=== PATIENT | female | born 1995 | race American Indian/Alaskan Native ===

== ENCOUNTER 2017-12-08 20:51 | Emergency (ER) | payer OTHER, MEDICAID ==
[2017-12-08] MEDS ORDERED: Nitrofurantoin Monohydrate/Macrocrystalline 100 MG Cap PO ONE (21:39)
--- NOTE | 2017-12-08 21:39 | EDM.PDOC ---
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 denies dysuria Lower Abdomen Pain Score (Numeric/FACES): 5 - Related Data Allergies Allergy/AdvReac Type Severity Reaction Status Date / Time clavulanic acid Allergy Intermediate Rash Verified 12/08/17 21:08 [From Augmentin] amoxicillin [From Augmentin] Allergy Rash Verified 12/08/17 21:08 Penicillins Allergy Other Verified 12/08/17 21:09 Home Meds: Home Meds Folic Acid 1 mg PO DAILY 12/08/17 [History] Vit W-Ca,Fe,FA(<1 mg) [ Vitamins] 1 tab PO DAILY 12/08/17 [ History] Social & Family History - Family History Family Medical History: Noncontributory - Tobacco Use Smoking Status *Q: Never Smoker Second Hand Smoke Exposure: Yes - Recreational Drug Use Recreational Drug Use: No ED ROS GENERAL - Review of Systems Review Of Systems: ROS reveals no pertinent complaints other than HPI. ED EXAM, GI/ABD - Physical Exam Exam: See Below Exam Limited By: No Limitations General Appearance: Alert, WD/WN, No Apparent Distress Ears: Hearing Grossly Normal Throat/Mouth: Normal Voice, No Airway Compromise Head: Atraumatic Neck: Non-Tender, Full Range of Motion Respiratory/Chest: No Respiratory Distress Cardiovascular: Regular Rate, Rhythm GI/Abdominal Exam: Soft, Non-Tender Neurological: Alert, Oriented, Normal Cognition, Normal Gait, No Motor/Sensory Deficits Psychiatric: Normal Affect, Normal Mood Skin Exam: Warm, Dry, Normal Color Course - Vital Signs Last Recorded V/S: Last Vital Signs Temp 37.2 C 12/08/17 21:11 Pulse 119 H 12/08/17 21:11 Resp 16 12/08/17 21:11 BP 130/75 12/08/17 21:11 Pulse Ox 98 12/08/17 21:11 - Orders/Labs/Meds Orders: Active Orders 24 hr Category Date Time Status HCG QUALITATIVE,URINE [URCHEM] Stat Lab 12/08/17 21:02 Stop Req URINALYSIS W/MICROSCOPIC [UA W/MICROSCOPIC] [URIN] Stat Lab 12/08/17 21:02 Ordered Labs: Laboratory Tests 12/08/17 Range/Units 21:02 Urine Color Yellow (YELLOW) Urine Appearance Slightly cloudy (CLEAR) Urine pH 6.0 (5.0-9.0) Ur Specific [place] 1.020 (1.005-1.030) Urine Protein Trace H (NEGATIVE) Urine Glucose (UA) Negative (NEGATIVE) Urine Ketones >=160 H (NEGATIVE) Urine Occult Blood Negative (NEGATIVE) Urine Nitrite Negative (NEGATIVE) Urine Bilirubin Negative (NEGATIVE) Urine Urobilinogen 0.2 (0.2-1.0) mg/dL Ur Leukocyte Esterase Trace H (NEGATIVE) Urine RBC 0-5 /HPF Urine WBC 10-20 H (0-5/HPF) /HPF Ur Epithelial Cells Many H /HPF Urine Bacteria Moderate H (0-FEW/HPF) /HPF Urine Mucus Moderate H /LPF Urine Other See note - Re-Assessments/Exams Free Text/Narrative Re-Assessment/Exam: 12/08/17 21:38 results discussed with pt. Departure - Departure Time of Disposition: 21:38 Disposition: Home, Self-Care 01 Condition: Good Clinical Impression: UTI (urinary tract infection) Qualifiers: Urinary tract infection type: acute cystitis Hematuria presence: without hematuria Qualified Code(s): N30.00 - Acute cystitis without hematuria - Discharge Information Instructions: Urinary Tract Infection, Adult, [id number] Referrals: Sarah Cunningham BUDGET COUNSELOR [Primary Care Provider] - Additional Instructions: 1) drink lots of liquids 2) follow up with clinic 3) recheck if develops fever and back pain rx given; macrobid 100mg bid x 20 - My Orders Last 24 Hours: My Active Orders 12/08/17 21:02 HCG QUALITATIVE,URINE [URCHEM] Stat URINALYSIS W/MICROSCOPIC [UA W/MICROSCOPIC] [URIN] Stat - Assessment/Plan Last 24 Hours: My Active Orders 12/08/17 21:02 HCG QUALITATIVE,URINE [URCHEM] Stat URINALYSIS W/MICROSCOPIC [UA W/MICROSCOPIC] [URIN] Stat
== END 2017-12-08 21:47 | disposition home or self-care (01) ==
LOC: DL.ED 20:51
DX: O23.41 Unspecified infection of urinary tract in pregnancy, first trimester (principal); N30.00 Acute cystitis without hematuria; Z88.0 Allergy status to penicillin; Z88.1 Allergy status to other antibiotic agents; Z3A.13 13 weeks gestation of pregnancy
CPT/HCPCS: 81001; 99283; 99284; A9270

== ENCOUNTER 2019-04-17 16:08 | Inpatient (IN) | payer MEDICAID ==
[2019-04-17] MEDS ORDERED: Misoprostol 400 MCG (4 X 100 MCG TAB) RECTAL PRN (23:15)
[2019-04-17] MEDS ORDERED: Tranexamic Acid 1,000 MG in Sodium Chloride 0.9% 100 ML IV PRN (23:15)
[2019-04-17] MEDS ORDERED: Lactated Ringers 500 ML IV ONE (23:15)
[2019-04-17] MEDS ORDERED: Lidocaine 1% 30 ML SDV INJECT PRN (23:15)
[2019-04-17] MEDS ORDERED: Sodium Chloride 0.9% 10 ML Syringe FLUSH PRN (23:15)
[2019-04-17] MEDS ORDERED: Carboprost Tromethamine 250 MCG/1 ML Amp IM PRN (23:15)
[2019-04-17] MEDS ORDERED: Ondansetron 4 MG/2 ML SDV IV PRN (23:15)
[2019-04-17] MEDS ORDERED: fentaNYL 100 MCG/2 ML SDV IVPUSH PRN (23:15)
[2019-04-17] MEDS ORDERED: Methylergonovine 0.2 MG/1 ML Amp IM PRN (23:15)
--- NOTE | 2019-04-18 00:35 | PCM.LDHP ---
L&D History of Present Illness - General Date of Service: 04/18/19 Admit Problem/Dx: Patient Status Order with Admit Dx/Problem 04/17/19 23:15 Patient Status [ADT] Routine Admission Diagnosis/Problem Admission Diagnosis/Problem care Source of Information: Patient History Limitations: Reports: No Limitations - History of Present Illness Introduction:: 23-year-old at 39w1d presents with increased pelvic pressure for the past 8 hours and increased contractions, now every 8-10 minutes. Baby has been active. No vaginal bleeding or leaking of fluid. has been complicated by close-interval and anemia. Patient also had an abnormal quad screen with normal subsequent testing. - Related Data Allergies/Adverse Reactions: Allergies Allergy/AdvReac Type Severity Reaction Status Date / Time clavulanic acid Allergy Intermediate Cannot Verified 04/17/19 18:22 [From Augmentin] Remember amoxicillin [From Augmentin] Allergy Cannot Verified 04/17/19 18:22 Remember Penicillins Allergy Cannot Verified 04/17/19 18:22 Remember Home Medications: Home Meds Vit Calc,Iron,Folic [ Vitamins] 1 tab PO DAILY 12/08/17 [ History] Ferrous Sulfate 325 mg PO DAILY 05/30/18 [History] Past Medical History HEENT History: Reports: None Cardiovascular History: Reports: None Respiratory History: Reports: None Gastrointestinal History: Reports: GERD Genitourinary History: Reports: None 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 OB/BYN History: last delivery 06/11/18 Musculoskeletal History: Reports: None Neurological History: Reports: None Psychiatric History: Reports: None Endocrine/Metabolic History: Reports: None Hematologic History: Reports: Anemia Immunologic History: Reports: None Oncologic (Cancer) History: Reports: None Dermatologic History: Reports: None - Infectious Disease History Infectious Disease History: Reports: None - Past Surgical History Head Surgeries/Procedures: Reports: None Social & Family History - Family History Family Medical History: Noncontributory - Caffeine Use Caffeine Use: Reports: None - Living Situation & Occupation Living situation: Reports: with Significant Other (Engaged) H&P Review of Systems - Review of Systems: Review Of Systems: See Below General: Reports: No Symptoms HEENT: Reports: No Symptoms Pulmonary: Reports: No Symptoms Cardiovascular: Reports: No Symptoms Gastrointestinal: Reports: No Symptoms Genitourinary: Reports: No Symptoms Musculoskeletal: Reports: No Symptoms Skin: Reports: No Symptoms Psychiatric: Reports: No Symptoms Neurological: Reports: No Symptoms L&D Exam - Exam Exam: See Below - Vital Signs Vital Signs: Last Vital Signs Temp 36.8 C 04/17/19 16:20 Pulse 81 04/17/19 17:07 Resp BP 138/83 04/17/19 17:07 Pulse Ox - OB Specific Contraction Frequency (min): none Movement: Active Heart Tones: Present Heart Tones per Min: 135 Heart Rate (FHR) Variability: Moderate (6-25 bmp) Presentation: Vertex - Rajan Score Rajan Score Cervix Position: Posterior Rajan Score Consistency: Soft Rajan Score Effacement: 51-70% Rajan Score Dilation: 3-4 cm Rajan Score Infant's Station: -2 Rajan Score Total: 7 - Exam General: Alert, Oriented Lungs: Clear to Auscultation, Normal Respiratory Effort Cardiovascular: Regular Rate, Regular Rhythm. No: Systolic Murmur, Diastolic Murmur Genitourinary: Normal external exam Back Exam: Normal Inspection Extremities: Pedal Edema (Trace bilaterally) Skin: Warm, Dry, Intact - Patient Data Lab Results Last 24 hrs: Laboratory Results - last 24 hr 04/17/19 Range/Units 23:40 WBC 10.1 H (5.0-10.0) 10^3/uL RBC 4.41 (4.2-5.4) 10^6/uL Hgb 10.9 L D (12.0-16.0) g/dL Hct 33.6 L (37.0-47.0) % MCV 76.2 L (80-100) fL MCH 24.7 L (27.0-34.0) pg MCHC 32.4 L (33.0-35.0) g/dL Plt Count 207 (150-450) 10^3/uL Result Diagrams: 04/17/19 23:40 - Problem List (1) care in third trimester SNOMED Code(s): 016952590, 46960166, 64685072, 975977320, 188061244 ICD Code: Z34.93 - ENCNTR FOR SUPRVSN OF NORMAL PREG, UNSP, THIRD TRIMESTER Status: Acute Current Visit: No (2) Abnormal quad screen SNOMED Code(s): 154495176, 152743456 ICD Code: O28.0 - ABNORMAL HEMATOLOG FINDING ON SCREENING OF MOTHER Status: Acute Current Visit: Yes (3) Heartburn during SNOMED Code(s): 37945562 ICD Code: O26.899 - OTH RELATED CONDITIONS, UNSPECIFIED TRIMESTER; R12 - HEARTBURN Status: Acute Current Visit: Yes (4) Anemia affecting in third trimester SNOMED Code(s): 81394528, 22741518 ICD Code: O99.013 - ANEMIA COMPLICATING , THIRD TRIMESTER Status: Acute Current Visit: No Problem List Initiated/Reviewed/Updated: Yes Orders Last 24hrs: Active Orders 24 hr Category Date Time Status Patient Status [ADT] Routine ADT 04/17/19 23:15 Active Communication Order [RC] ASDIRECTED Care 04/17/19 23:15 Active Communication Order [RC] ASDIRECTED Care 04/17/19 23:20 Active Communication Order [RC] ASDIRECTED Care 04/17/19 23:20 Active Communication Order [RC] ASDIRECTED Care 04/17/19 23:20 Active Communication Order [RC] ASDIRECTED Care 04/17/19 23:20 Active Communication Order [RC] ASDIRECTED Care 04/17/19 23:20 Active Heart Tones [RC] PER UNIT ROUTINE Care 04/17/19 23:15 Active Monitoring [RC] PER UNIT ROUTINE Care 04/17/19 23:20 Active Notify Provider Vital Signs OB [RC] ASDIRECTED Care 04/17/19 23:15 Active Notify Provider [RC] PRN Care 04/17/19 23:15 Active Notify Provider [RC] PRN Care 04/17/19 23:20 Active Notify Provider [RC] PRN Care 04/17/19 23:20 Active Notify Provider [RC] STAT Care 04/17/19 23:20 Active OB Check [OM.PC] Click To Edit Care 04/17/19 18:21 Ordered POC Labs [RC] ASDIRECTED Care 04/17/19 23:15 Active Pump Management, Intrathecal [RC] ASDIRECTED Care 04/17/19 23:15 Active Up ad Irene [RC] ASDIRECTED Care 04/17/19 23:15 Active Up ad Irene [RC] PER UNIT ROUTINE Care 04/17/19 23:20 Active Vaginal Exam [RC] PRN Care 04/17/19 23:20 Active Vital Signs [RC] PER UNIT ROUTINE Care 04/17/19 23:15 Active Regular Diet [DIET] Diet 04/17/19 Dinner Active Acetaminophen [Tylenol] Med 04/17/19 23:15 Active 650 mg PO Q4H PRN Carboprost Tromethamine [Hemabate DS] Med 04/17/19 23:15 Active 250 mcg IM ASDIRECTED PRN Lactated Ringers [Ringers, Lactated] 1,000 ml Med 04/17/19 23:15 Active IV ASDIRECTED Lidocaine 1% [Xylocaine-MPF 1%] Med 04/17/19 23:15 Active 30 ml INJECT ASDIRECTED PRN Methylergonovine [Methergine] Med 04/17/19 23:15 Active 0.2 mg IM ASDIRECTED PRN Ondansetron [Zofran] Med 04/17/19 23:15 Active 4 mg IV Q4H PRN Oxytocin/Normal Saline [Pitocin in NS 30 UNIT/500 ML] Med 04/17/19 23:30 Active 30 unit in 500 ml IV TITRATE Sodium Chloride 0.9% [Saline Flush] Med 04/17/19 23:15 Active 10 ml FLUSH ASDIRECTED PRN Tranexamic Acid [Cyklokapron] 1,000 mg Med 04/17/19 23:15 Active Sodium Chloride 0.9% [Normal Saline] 100 ml IV ONETIME fentaNYL [Sublimaze] Med 04/17/19 23:15 Active 50 mcg IVPUSH Q1H PRN miSOPROStol [Cytotec] Med 04/17/19 23:15 Active 800 mcg RECTAL ASDIRECTED PRN EFM External [ Heart Monitor External] [WOMSER] Oth 04/17/19 18:21 Ordered Routine Saline Lock Insert [OM.PC] Routine Oth 04/17/19 23:15 Ordered Resuscitation Status Routine Resus Stat 04/17/19 23:15 Ordered Medication Orders Acetaminophen (Tylenol) 650 mg PO Q4H PRN PRN Reason: Pain (Mild 1-3) and fever Carboprost Tromethamine (Hemabate Ds) 250 mcg IM ASDIRECTED PRN PRN Reason: HEMORRHAGE Fentanyl (Sublimaze) 50 mcg IVPUSH Q1H PRN PRN Reason: Pain (moderate 4-6) Lactated Ringer's (Ringers, Lactated) 1,000 mls @ 125 mls/hr IV ASDIRECTED [place] Tranexamic Acid 1,000 mg/ (Sodium Chloride) 110 mls @ 660 mls/hr IV ONETIME PRN PRN Reason: Bleeding Oxytocin/Sodium Chloride (Pitocin In Ns 30 Unit/500 Ml) 30 unit in 500 mls @ 2 mls/hr IV TITRATE [place]; Protocol Lidocaine HCl (Xylocaine-Mpf 1%) 30 ml INJECT ASDIRECTED PRN PRN Reason: Perineal Repair Methylergonovine Maleate (Methergine) 0.2 mg IM ASDIRECTED PRN PRN Reason: Hemorrhage Misoprostol (Cytotec) 800 mcg RECTAL ASDIRECTED PRN PRN Reason: Hemorrhage Ondansetron HCl (Zofran) 4 mg IV Q4H PRN PRN Reason: Nausea/Vomiting Sodium Chloride (Saline Flush) 10 ml FLUSH ASDIRECTED PRN PRN Reason: Keep Vein Open Assessment/Plan Comment:: 23-year-old at 39w1d with increased pelvic pain Patient was observed for 2 hours and cervix reassessed. Minimal change was noted; however, due to patient's gestational age, BMI, cervical dilation and close-interval pregnancies, she was offered IOL at she is 39w1d. Patient would like to proceed. 1. Admit to L&D and initiate routine intrapartum orders when able 2. Pitocin per protocol for induction/augmentation 3. AROM when able 4. Expectant management. Anticipate Ariana Sanon MD
[2019-04-18] MEDS ORDERED: hydrOXYzine HCl 25 MG Tab PO ONE (00:44)
[2019-04-18] MEDS ORDERED: Nalbuphine 10 MG/1 ML Vial IM PRN (00:44)
[2019-04-18] MEDS ORDERED: Nalbuphine 10 MG/1 ML Vial IV PRN (00:44)
[2019-04-18] MEDS: Lactated Ringers 1,000 ML IV SCH ×2 (01:10→08:10)
[2019-04-18] MEDS: Oxytocin/Normal Saline 30 UNIT/500 ML BAG IV SCH ×2 (01:12→11:48)
[2019-04-18] MEDS ORDERED: EPINEPHrine 1 MG/1 ML Amp ONE (08:02)
[2019-04-18] MEDS ORDERED: fentaNYL 100 MCG/2 ML SDV ONE (08:02)
--- NOTE | 2019-04-18 09:02 | PCM.PRNOTE ---
- Free Text/Narrative Note: Requested to provide analgesia to full term patient in severe pain. Upon entering the room, patient is sitting on edge of bed complaining of severe abdominal/pelvic pain and discomfort. Procedure was discussed with patient including adverse outcomes and expectations. Pt consented to analgesia, SAB/ IT. Pt placed into a proper sitting position. Landmarks for SAB/IT were identified and marked. Hands were washed and appropriate PPE was applied. Back was prepped with betadine x3. A sterile, transparent, fenestrated drape was applied. Excess betadine was removed. Using 3 mL of a 1% lidocaine solution , a skin wheel was placed at the L2/L3 interspace. A 24 ga (4 inch) Penc[place] spinal needle was inserted until positive for CSF. Negative for heme or paresthesias. Injected fentanyl 30 mcg, sufentanil 25 mcg, and 7.5 mg of a 0.75 % bupivacaine solution with an epi wash. Pt was placed left lateral position for approximately 20 minutes. There were zero complications or adverse outcomes. Will continue to monitor. Procedure Date & Time: 04-18-19 [id number]
[2019-04-18] MEDS ORDERED: Benzocaine/Menthol 20%-0.5% Spray 56 GM Canister TOP PRN (12:26)
[2019-04-18] MEDS ORDERED: Simethicone 80 MG Tab.Chew PO PRN (12:26)
[2019-04-18] MEDS ORDERED: Oxytocin 10 Units/1 ML SDV IM PRN (12:26)
--- NOTE | 2019-04-18 12:28 | PCM.DEL ---
L & D Note - Delivery Note Cervical Ripening Method: Oxytocin Presentation: Vertex Episiotomy Type: None Provider: Ariana Sanon - Patient Data Vitals - Most Recent: Last Vital Signs Temp 35.9 C 04/18/19 09:51 Pulse 74 04/18/19 12:01 Resp 16 04/18/19 11:31 BP 113/62 04/18/19 12:01 Pulse Ox 95 04/18/19 09:06 Weight - Most Recent: 121.563 kg I&O - Last 24 Hours: Intake & Output 04/17/19 04/18/19 04/18/19 22:59 06:59 14:59 Intake Total 1500 Balance 1500 Lab Results Last 24 Hours: Laboratory Results - last 24 hr 04/17/19 Range/Units 23:40 WBC 10.1 H (5.0-10.0) 10^3/uL RBC 4.41 (4.2-5.4) 10^6/uL Hgb 10.9 L D (12.0-16.0) g/dL Hct 33.6 L (37.0-47.0) % MCV 76.2 L (80-100) fL MCH 24.7 L (27.0-34.0) pg MCHC 32.4 L (33.0-35.0) g/dL Plt Count 207 (150-450) 10^3/uL Med Orders - Current: Current Medications Acetaminophen (Tylenol) 650 mg PO Q4H PRN PRN Reason: Pain (Mild 1-3) and fever Carboprost Tromethamine (Hemabate Ds) 250 mcg IM ASDIRECTED PRN PRN Reason: HEMORRHAGE Tranexamic Acid 1,000 mg/ (Sodium Chloride) 110 mls @ 660 mls/hr IV ONETIME PRN PRN Reason: Bleeding Oxytocin/Sodium Chloride (Pitocin In Ns 30 Unit/500 Ml) 30 unit in 500 mls @ 2 mls/hr IV TITRATE [place]; Protocol Last Admin: 04/18/19 11:48 Dose: 250 munits/min, 250 mls/hr Methylergonovine Maleate (Methergine) 0.2 mg IM ASDIRECTED PRN PRN Reason: Hemorrhage Last Admin: 04/18/19 10:49 Dose: 0.2 mg Misoprostol (Cytotec) 800 mcg RECTAL ASDIRECTED PRN PRN Reason: Hemorrhage Nalbuphine HCl (Nubain) 20 mg IM Q3H PRN PRN Reason: Pain Nalbuphine HCl (Nubain) 10 mg IV Q3H PRN PRN Reason: Pain Sodium Chloride (Saline Flush) 10 ml FLUSH ASDIRECTED PRN PRN Reason: Keep Vein Open Discontinued Medications Epinephrine HCl (Adrenalin) Confirm Administered Dose 1 mg .ROUTE .STK-MED ONE Stop: 04/18/19 08:03 Fentanyl (Sublimaze) 50 mcg IVPUSH Q1H PRN PRN Reason: Pain (moderate 4-6) Last Admin: 04/18/19 06:50 Dose: 50 mcg Fentanyl (Sublimaze) Confirm Administered Dose 100 mcg .ROUTE .STK-MED ONE Stop: 04/18/19 08:03 Hydroxyzine HCl (Atarax) 50 mg PO ONETIME ONE Stop: 04/18/19 00:45 Last Admin: 04/18/19 01:08 Dose: 50 mg Lactated Ringer's (Ringers, Lactated) 500 mls @ 999 mls/hr IV .BOLUS ONE Stop: 04/17/19 23:45 Lactated Ringer's (Ringers, Lactated) 1,000 mls @ 125 mls/hr IV ASDIRECTED [place] Last Admin: 04/18/19 08:10 Dose: 125 mls/hr Lidocaine HCl (Xylocaine-Mpf 1%) 30 ml INJECT ASDIRECTED PRN PRN Reason: Perineal Repair Ondansetron HCl (Zofran) 4 mg IV Q4H PRN PRN Reason: Nausea/Vomiting Last Admin: 04/18/19 07:53 Dose: 4 mg Sufentanil Citrate (Sufenta) Confirm Administered Dose 50 mcg .ROUTE .STK-MED ONE Stop: 04/18/19 08:03 - Problem List & Annotations (1) care in third trimester SNOMED Code(s): 054584850, 01553457, 80503574, 055219107, 063586348 Code(s): Z34.93 - ENCNTR FOR SUPRVSN OF NORMAL PREG, UNSP, THIRD TRIMESTER Status: Acute Current Visit: No (2) Abnormal quad screen SNOMED Code(s): 946071857, 639362413 Code(s): O28.0 - ABNORMAL HEMATOLOG FINDING ON SCREENING OF MOTHER Status: Acute Current Visit: Yes (3) Heartburn during SNOMED Code(s): 37351704 Code(s): O26.899 - OTH RELATED CONDITIONS, UNSPECIFIED TRIMESTER; R12 - HEARTBURN Status: Acute Current Visit: Yes (4) Anemia affecting in third trimester SNOMED Code(s): 62928537, 32760945 Code(s): O99.013 - ANEMIA COMPLICATING , THIRD TRIMESTER Status: Acute Current Visit: No - My Orders Last 24 Hours: My Active Orders 04/17/19 18:21 OB Check [OM.PC] Click To Edit EFM External [ Heart Monitor External] [WOMSER] Routine 04/17/19 23:15 Patient Status [ADT] Routine Notify Provider Vital Signs OB [RC] ASDIRECTED POC Labs [RC] ASDIRECTED Up ad Irene [RC] ASDIRECTED Acetaminophen [Tylenol] 650 mg PO Q4H PRN Carboprost Tromethamine [Hemabate DS] 250 mcg IM ASDIRECTED PRN Methylergonovine [Methergine] 0.2 mg IM ASDIRECTED PRN Sodium Chloride 0.9% [Saline Flush] 10 ml FLUSH ASDIRECTED PRN Tranexamic Acid [Cyklokapron] 1,000 mg Sodium Chloride 0.9% [Normal Saline] 100 ml IV ONETIME miSOPROStol [Cytotec] 800 mcg RECTAL ASDIRECTED PRN Saline Lock Insert [OM.PC] Routine Resuscitation Status Routine 04/17/19 23:30 Oxytocin/Normal Saline [Pitocin in NS 30 UNIT/500 ML] 30 unit in 500 ml IV TITRATE 04/17/19 Dinner Regular Diet [DIET] 04/18/19 00:44 Nalbuphine [Nubain] 10 mg IV Q3H PRN Nalbuphine [Nubain] 20 mg IM Q3H PRN 04/18/19 12:26 Vital Signs [RC] PFP Consult to Pharmacy Benefits Coordinator [CONS] Routine CBC W/O DIFF,HEMOGRAM [HEME] Routine Benzocaine/Menthol [Dermoplast Pain Relief [place]] See Dose Instructions TOP Q4H PRN Docusate Sodium [Colace] 100 mg PO BID PRN Ibuprofen [Motrin] 800 mg PO Q8H PRN Oxytocin [Pitocin] 10 unit IM ONETIME PRN Simethicone 80 mg PO Q4H PRN Zolpidem [Ambien] 5 mg PO BEDTIME PRN Assess Lochia [WOMSER] Per Unit Routine Assess Uterine Involution [WOMSER] Per Unit Routine Breast Pump [WOMSER] Per Unit Routine Ice Therapy [OM.PC] Per Unit Routine Perineal Care [OM.PC] Per Unit Routine Sitz Bath [OM.PC] Per Unit Routine 04/19/19 09:00 Vit with Ca/FA/Iron [ Plus Iron] 1 each PO DAILY - Plan Plan:: 23-year-old at 39w1d with increased pelvic pain Patient was observed for 2 hours and cervix reassessed. Minimal change was noted; however, due to patient's gestational age, BMI, cervical dilation and close-interval pregnancies, she was offered IOL at she is 39w1d. Patient would like to proceed. 1. Admit to L&D and initiate routine intrapartum orders when able 2. Pitocin per protocol for induction/augmentation 3. AROM when able 4. Expectant management. Anticipate Ariana Sanon MD
[2019-04-18] MEDS: Ibuprofen 800 MG Tab PO PRN (15:07)
[2019-04-18] MEDS ORDERED: Zolpidem 5 MG Tab PO PRN (21:00)
[2019-04-18] MEDS: Acetaminophen 325 MG Tab PO PRN (22:12)
[2019-04-18] MEDS: Docusate Sodium 100 MG Cap PO PRN (22:12)
[2019-04-19] MEDS: Ibuprofen 800 MG Tab PO PRN ×2 (07:46→19:29)
[2019-04-19] MEDS: Prenatal Multivitamin with Calcium/Folic Acid/Iron Tab PO SCH ×2 (07:47→10:10)
[2019-04-19] MEDS: Acetaminophen 325 MG Tab PO PRN ×2 (07:47→19:29)
--- NOTE | 2019-04-19 08:19 | PCM.PNPP ---
- General Info Date of Service: 04/19/19 Admission Dx/Problem (Free Text): Post Day Number 1 Patient: Flor Meraz Admit Date: 04/18/19 Today's Date: 04/19/19 Subjective: Patient is ambulating, voiding, tolerating regular diet all without difficulty. She reports her lochia is moderate . She is not . She is up and ambulating well, tolerating PO intake and using the bathroom, good bowel sounds and passing gas, no bowel movement at this time. She complains of generalized soreness in her bottom, abdomen and back. Objective: Vitals reviewed General: alert and oriented, no distress Lungs: CTAB, no respiratory distress Heart: RRR Abdomen: mildly tender Uterus is firm, at the level of the umbilicus. Lower extremities are nontender and have trace edema. Skin: is warm and dry, well perfused no visible lesions RPR: nonreactive Rubella: immune GBS: negative Hbs: negative Assessment/Plan: Patient is stable and comfortable, no acute distress. She is day number one status post Her Hb today was 8.9 with previous of 10.9 and she is completely asymptomatic. She did get one dose of Methergine for post bleeding, but bleeding has been normal since then. Plan will be to encourage ambulation. Saline lock IV with good oral intake. Continue with advancing routine post cares. Plan for discharge tomorrow Arina Oconnell MD PGY-3 - Patient Data Vital Signs - Most Recent: Last Vital Signs Temp 98.5 F 04/18/19 20:00 Pulse 84 04/18/19 20:00 Resp 16 04/18/19 20:00 BP 127/78 04/18/19 20:00 Pulse Ox 99 04/18/19 20:00 Weight - Most Recent: 268 lb I&O - Last 24 Hours: Intake & Output 04/18/19 04/19/19 04/19/19 22:59 06:59 14:59 Intake Total 520 Output Total 700 Balance -180 Lab Results - Last 24 Hours: Laboratory Results - last 24 hr 04/19/19 Range/Units 06:10 WBC 11.5 H (5.0-10.0) 10^3/uL RBC 3.60 L (4.2-5.4) 10^6/uL Hgb 8.9 L D (12.0-16.0) g/dL Hct 28.1 L (37.0-47.0) % MCV 78.1 L (80-100) fL MCH 24.7 L (27.0-34.0) pg MCHC 31.7 L (33.0-35.0) g/dL Plt Count 167 (150-450) 10^3/uL Med Orders - Current: Current Medications Acetaminophen (Tylenol) 650 mg PO Q4H PRN PRN Reason: Pain (Mild 1-3) and fever Last Admin: 04/19/19 07:47 Dose: 650 mg Benzocaine/Menthol (Dermoplast Pain Relief [place]) 0 gm TOP Q4H PRN PRN Reason: Perineal comfort measures Last Admin: 04/18/19 15:08 Dose: 1 spray Carboprost Tromethamine (Hemabate Ds) 250 mcg IM ASDIRECTED PRN PRN Reason: HEMORRHAGE Docusate Sodium (Colace) 100 mg PO BID PRN PRN Reason: Constipation Last Admin: 04/18/19 22:12 Dose: 100 mg Tranexamic Acid 1,000 mg/ (Sodium Chloride) 110 mls @ 660 mls/hr IV ONETIME PRN PRN Reason: Bleeding Oxytocin/Sodium Chloride (Pitocin In Ns 30 Unit/500 Ml) 30 unit in 500 mls @ 2 mls/hr IV TITRATE [place]; Protocol Last Titration: 04/18/19 14:48 Dose: 0 munits/min, 0 mls/hr Ibuprofen (Motrin) 800 mg PO Q8H PRN PRN Reason: Mild Pain or Fever, use 2nd Last Admin: 04/19/19 07:46 Dose: 800 mg Methylergonovine Maleate (Methergine) 0.2 mg IM ASDIRECTED PRN PRN Reason: Hemorrhage Last Admin: 04/18/19 10:49 Dose: 0.2 mg Misoprostol (Cytotec) 800 mcg RECTAL ASDIRECTED PRN PRN Reason: Hemorrhage Nalbuphine HCl (Nubain) 20 mg IM Q3H PRN PRN Reason: Pain Nalbuphine HCl (Nubain) 10 mg IV Q3H PRN PRN Reason: Pain Oxytocin (Pitocin) 10 unit IM ONETIME PRN PRN Reason: Bleeding Prenat Multivit/[place]/Iron/Folic Ac ( Plus Iron) 1 each PO DAILY [facility] Last Admin: 04/19/19 07:47 Dose: 1 each Simethicone (Simethicone) 80 mg PO Q4H PRN PRN Reason: Gas Sodium Chloride (Saline Flush) 10 ml FLUSH ASDIRECTED PRN PRN Reason: Keep Vein Open Zolpidem Tartrate (Ambien) 5 mg PO BEDTIME PRN PRN Reason: Insomnia Discontinued Medications Epinephrine HCl (Adrenalin) Confirm Administered Dose 1 mg .ROUTE .STK-MED ONE Stop: 04/18/19 08:03 Last Admin: 04/18/19 14:23 Dose: Not Given Fentanyl (Sublimaze) 50 mcg IVPUSH Q1H PRN PRN Reason: Pain (moderate 4-6) Last Admin: 04/18/19 06:50 Dose: 50 mcg Fentanyl (Sublimaze) Confirm Administered Dose 100 mcg .ROUTE .STK-MED ONE Stop: 04/18/19 08:03 Last Admin: 04/18/19 14:23 Dose: Not Given Hydroxyzine HCl (Atarax) 50 mg PO ONETIME ONE Stop: 04/18/19 00:45 Last Admin: 04/18/19 01:08 Dose: 50 mg Lactated Ringer's (Ringers, Lactated) 500 mls @ 999 mls/hr IV .BOLUS ONE Stop: 04/17/19 23:45 Last Admin: 04/18/19 17:46 Dose: Not Given Lactated Ringer's (Ringers, Lactated) 1,000 mls @ 125 mls/hr IV ASDIRECTED [facility] Last Admin: 04/18/19 08:10 Dose: 125 mls/hr Lidocaine HCl (Xylocaine-Mpf 1%) 30 ml INJECT ASDIRECTED PRN PRN Reason: Perineal Repair Ondansetron HCl (Zofran) 4 mg IV Q4H PRN PRN Reason: Nausea/Vomiting Last Admin: 04/18/19 07:53 Dose: 4 mg Sufentanil Citrate (Sufenta) Confirm Administered Dose 50 mcg .ROUTE .STK-MED ONE Stop: 04/18/19 08:03 Last Admin: 04/18/19 14:23 Dose: Not Given - Interaction Support Person: Significant Other - Recovery Exam Fundal Tone: Firm Fundal Level: At Umbilicus Fundal Placement: Midline Lochia Amount: Small Lochia Color: Rubra/Red Perineum Description: Intact, Minimal Bruising/Swelling Episiotomy/Laceration: Approximated Bladder Status: Voiding Urinary Elimination: Not Voiding - Problem List & Annotations (1) (normal spontaneous vaginal delivery) SNOMED Code(s): 62974823, 465290433 Code(s): O80 - ENCOUNTER FOR FULL-TERM UNCOMPLICATED DELIVERY Status: Acute Current Visit: No - Problem List Review Problem List Initiated/Reviewed/Updated: Yes
[2019-04-19] MEDS: Albuterol 6.7 GM Inhaler INH PRN (19:28)
[2019-04-19] MEDS: Docusate Sodium 100 MG Cap PO PRN (19:29)
[2019-04-20] MEDS: Ibuprofen 800 MG Tab PO PRN (09:05)
[2019-04-20] MEDS: Prenatal Multivitamin with Calcium/Folic Acid/Iron Tab PO SCH (09:05)
[2019-04-20] MEDS: Albuterol 6.7 GM Inhaler INH PRN (09:08)
--- NOTE | 2019-04-20 12:12 | PCM.DCSUM1 ---
Discharge Summary - Hospital Course HPI Initial Comments: Summary of Hospital Course: Flor Meraz is a 23 year old at 39w1d who presented to labor and delivery on 04/18 with uterine contractions, she was admitted for induction of labor. She underwent a delivery and delivered a viable female weighing 3765 grams with Apgars of 7 and 9 at 1 and 5 minutes respectively. hemoglobin was 8.9 gm/dL. Patient had unremarkable course. By day 2 pt was doing well, ambulating, voiding, and tolerating general diet without difficulty. Pain was well controlled with OTC pain medications. Hence she was discharged to home. Blood type: O+ Rubella immune. control to be discussed . Diagnosis: Stroke: No - Discharge Data Discharge Date: 04/20/19 Discharge Disposition: Home, Self-Care 01 Condition: Good - Referral to Home Health Primary Care Physician: Vicki Cruz PA-C - Discharge Diagnosis/Problem(s) (1) (normal spontaneous vaginal delivery) SNOMED Code(s): 38282437, [id number] ICD Code: O80 - ENCOUNTER FOR FULL-TERM UNCOMPLICATED DELIVERY Status: Acute Current Visit: No - Patient Summary/Data Consults: Consultations 04/18/19 12:26 Consult to Filler Wiper [CONS] Routine - Patient Instructions Diet: Usual Diet as Tolerated Activity: No Lifting Over 20 Pounds Driving: May Drive Today Showering/Bathing: May Shower Notify Provider of: Fever, Increased Pain, Swelling and Redness, Drainage, Nausea and/or Vomiting - Discharge Plan *PRESCRIPTION DRUG MONITORING PROGRAM REVIEWED*: Not Applicable *COPY OF PRESCRIPTION DRUG MONITORING REPORT IN PATIENT SAMUEL: Not Applicable Home Medications: Home Meds Vit Calc,Iron,Folic [ Vitamins] 1 tab PO DAILY 12/08/17 [ History] Ferrous Sulfate 325 mg PO DAILY 05/30/18 [History] Acetaminophen [Tylenol] 650 mg PO Q4H PRN tablet 04/20/19 [Rx] Albuterol [Proventil HFA] 0 gm INH Q4H PRN #0 inhaler 04/20/19 [Rx] Docusate Sodium [Colace] 100 mg PO BID PRN cap 04/20/19 [Rx] Ibuprofen [Motrin] 800 mg PO Q8H PRN tablet 04/20/19 [Rx] - Discharge Summary/Plan Comment DC Time >30 min.: Yes Discharge Summary/Plan Comment: Discharge (or Final) Diagnoses: 1. Status post Intrauterine at 39w1d 2. s/p Induction of labor 3. on 04/18/19 Discharge Details: Admission Condition: good Discharged Condition: good Disposition: Home Diet: regular diet Activity: no heavy lifting for 2 weeks, pelvic rest for 6 weeks. She was instructed to seek medical attention for fever>100.3, or heavy vaginal bleeding. Follow-up with Dr. Sanon in 6 weeks for visit. - General Info Date of Service: 04/20/19 Admission Dx/Problem (Free Text: Induction of labor IUP at 39w1d - Patient Data Vitals - Most Recent: Last Vital Signs Temp 97.8 F 04/20/19 08:00 Pulse 91 04/20/19 08:00 Resp 18 04/20/19 08:00 BP 127/76 04/20/19 08:00 Pulse Ox 100 04/20/19 08:00 Weight - Most Recent: 268 lb I&O - Last 24 hours: Intake & Output 04/19/19 04/20/19 04/20/19 22:59 06:59 14:59 Intake Total 360 Balance 360 Med Orders - Current: Current Medications Acetaminophen (Tylenol) 650 mg PO Q4H PRN PRN Reason: Pain (Mild 1-3) and fever Last Admin: 04/19/19 19:29 Dose: 650 mg Albuterol (Proventil Hfa) 0 gm INH Q4H PRN PRN Reason: Shortness of Breath Last Admin: 04/20/19 09:08 Dose: 2 puff Benzocaine/Menthol (Dermoplast Pain Relief [place]) 0 gm TOP Q4H PRN PRN Reason: Perineal comfort measures Last Admin: 04/18/19 15:08 Dose: 1 spray Carboprost Tromethamine (Hemabate Ds) 250 mcg IM ASDIRECTED PRN PRN Reason: HEMORRHAGE Docusate Sodium (Colace) 100 mg PO BID PRN PRN Reason: Constipation Last Admin: 04/19/19 19:29 Dose: 100 mg Tranexamic Acid 1,000 mg/ (Sodium Chloride) 110 mls @ 660 mls/hr IV ONETIME PRN PRN Reason: Bleeding Oxytocin/Sodium Chloride (Pitocin In Ns 30 Unit/500 Ml) 30 unit in 500 mls @ 2 mls/hr IV TITRATE [place]; Protocol Last Titration: 04/18/19 14:48 Dose: 0 munits/min, 0 mls/hr Ibuprofen (Motrin) 800 mg PO Q8H PRN PRN Reason: Mild Pain or Fever, use 2nd Last Admin: 04/20/19 09:05 Dose: 800 mg Methylergonovine Maleate (Methergine) 0.2 mg IM ASDIRECTED PRN PRN Reason: Hemorrhage Last Admin: 04/18/19 10:49 Dose: 0.2 mg Misoprostol (Cytotec) 800 mcg RECTAL ASDIRECTED PRN PRN Reason: Hemorrhage Nalbuphine HCl (Nubain) 20 mg IM Q3H PRN PRN Reason: Pain Nalbuphine HCl (Nubain) 10 mg IV Q3H PRN PRN Reason: Pain Oxytocin (Pitocin) 10 unit IM ONETIME PRN PRN Reason: Bleeding Prenat Multivit/[place]/Iron/Folic Ac ( Plus Iron) 1 each PO DAILY [place] Last Admin: 04/20/19 09:05 Dose: 1 each Simethicone (Simethicone) 80 mg PO Q4H PRN PRN Reason: Gas Sodium Chloride (Saline Flush) 10 ml FLUSH ASDIRECTED PRN PRN Reason: Keep Vein Open Zolpidem Tartrate (Ambien) 5 mg PO BEDTIME PRN PRN Reason: Insomnia Discontinued Medications Epinephrine HCl (Adrenalin) Confirm Administered Dose 1 mg .ROUTE .STK-MED ONE Stop: 04/18/19 08:03 Last Admin: 04/18/19 14:23 Dose: Not Given Fentanyl (Sublimaze) 50 mcg IVPUSH Q1H PRN PRN Reason: Pain (moderate 4-6) Last Admin: 04/18/19 06:50 Dose: 50 mcg Fentanyl (Sublimaze) Confirm Administered Dose 100 mcg .ROUTE .STK-MED ONE Stop: 04/18/19 08:03 Last Admin: 04/18/19 14:23 Dose: Not Given Hydroxyzine HCl (Atarax) 50 mg PO ONETIME ONE Stop: 04/18/19 00:45 Last Admin: 04/18/19 01:08 Dose: 50 mg Lactated Ringer's (Ringers, Lactated) 500 mls @ 999 mls/hr IV .BOLUS ONE Stop: 04/17/19 23:45 Last Admin: 04/18/19 17:46 Dose: Not Given Lactated Ringer's (Ringers, Lactated) 1,000 mls @ 125 mls/hr IV ASDIRECTED [place] Last Admin: 04/18/19 08:10 Dose: 125 mls/hr Lidocaine HCl (Xylocaine-Mpf 1%) 30 ml INJECT ASDIRECTED PRN PRN Reason: Perineal Repair Ondansetron HCl (Zofran) 4 mg IV Q4H PRN PRN Reason: Nausea/Vomiting Last Admin: 04/18/19 07:53 Dose: 4 mg Sufentanil Citrate (Sufenta) Confirm Administered Dose 50 mcg .ROUTE .STK-MED ONE Stop: 04/18/19 08:03 Last Admin: 04/18/19 14:23 Dose: Not Given - Exam General: Reports: Alert, Oriented Lungs: Reports: Clear to Auscultation, Normal Respiratory Effort Cardiovascular: Reports: Regular Rate, Regular Rhythm GI/Abdominal Exam: Normal Bowel Sounds, Soft, Non-Tender, Other (Uterus firm, non tender 1 cm below umbilicus) Extremities: Non-Tender, No Pedal Edema
[2019-04-20] MEDS: Acetaminophen 325 MG Tab PO PRN (13:44)
[2019-04-20] MEDS ORDERED: EPINEPHrine 1 MG/1 ML Amp ONE (17:14)
[2019-04-20] MEDS ORDERED: fentaNYL 100 MCG/2 ML SDV ITHECAL ONE (17:14)
== END 2019-04-20 17:15 | disposition home or self-care (01) | DRG 807 ==
LOC: DL.OBCHECK 16:08 → DL.OB 23:29 → OBSVTOIN 04-18 10:42
PROVIDERS: ADMIT Family Medicine; ATTEND Family Medicine
PROC: 10E0XZZ Delivery of Products of Conception, External Approach (ICD-10-PCS; principal; 2019-04-18)
PROC: 3E033VJ Introduction of Other Hormone into Peripheral Vein, Percutaneous Approach (ICD-10-PCS; 2019-04-18)
DX: O99.02 Anemia complicating childbirth (principal); Z37.0 Single live birth; D64.9 Anemia, unspecified; O75.89 Other specified complications of labor and delivery; R12 Heartburn; Z3A.39 39 weeks gestation of pregnancy
CPT/HCPCS: 36415; 59409; 85027; A9270-GY; J0171; J2210; J2405; J2590; J3010; J7120

== ENCOUNTER 2021-02-17 19:30 | Emergency (ER) | payer SELFPAY ==
[2021-02-17] MEDS ORDERED: Benzonatate 100 MG Cap PO ONE (19:31)
[2021-02-17] MEDS ORDERED: Benzonatate 100 MG Cap ONE (21:16)
--- NOTE | 2021-02-17 21:23 | EDM.PDOC ---
ED HPI GENERAL MEDICAL PROBLEM - General Chief Complaint: General Stated Complaint: POSSIBLE BRONCHITIS / COVID / HEADACHE Time Seen by Provider: 02/17/21 20:50 Source of Information: Reports: Patient History Limitations: Reports: No Limitations - History of Present Illness INITIAL COMMENTS - FREE TEXT/NARRATIVE: ED with c/o cough congestion x 2 days, loss of taste and smell today. No known exposure to COVID. Slight sore throat last week but symptoms resolved . No nausea or vomiting. No other family members ill. - Related Data Allergies Allergy/AdvReac Type Severity Reaction Status Date / Time clavulanic acid Allergy Intermediate Cannot Verified 02/17/21 19:53 [From Augmentin] Remember amoxicillin [From Augmentin] Allergy Cannot Verified 02/17/21 19:53 Remember Penicillins Allergy Cannot Verified 02/17/21 19:53 Remember Home Meds: Home Meds Vit Calc,Iron,Folic [ Vitamins] 1 tab PO DAILY 12/08/17 [History] Ferrous Sulfate 325 mg PO DAILY 05/30/18 [History] Acetaminophen [Tylenol] 650 mg PO Q4H PRN tablet 04/20/19 [Rx] Albuterol [Proventil HFA] 0 gm INH Q4H PRN #0 inhaler 04/20/19 [Rx] Docusate Sodium [Colace] 100 mg PO BID PRN cap 04/20/19 [Rx] Ibuprofen [Motrin] 800 mg PO Q8H PRN tablet 04/20/19 [Rx] Past Medical History - Past Health History Medical/Surgical History: Denies Medical/Surgical History HEENT History: Reports: None Cardiovascular History: Reports: None Respiratory History: Reports: None Gastrointestinal History: Reports: GERD Genitourinary History: Reports: None 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 ELECTRICAL ENGINEER History: last delivery 06/11/18 Musculoskeletal History: Reports: None Neurological History: Reports: None Psychiatric History: Reports: None Endocrine/Metabolic History: Reports: None Hematologic History: Reports: Anemia Immunologic History: Reports: None Oncologic (Cancer) History: Reports: None Dermatologic History: Reports: None - Infectious Disease History Infectious Disease History: Reports: None - Past Surgical History Head Surgeries/Procedures: Reports: None Female Surgical History: Reports: Cystoscopy Social & Family History - Family History Family Medical History: No Pertinent Family History - Tobacco Use Tobacco Use Status *Q: Current Some Day Tobacco User Years of Tobacco use: 1 Packs/Tins Daily: 0.2 - Caffeine Use Caffeine Use: Reports: Soda, Tea - Recreational Drug Use Recreational Drug Use: No - Living Situation & Occupation Living situation: Reports: with Significant Other (Engaged) ED ROS GENERAL - Review of Systems Review Of Systems: Comprehensive ROS is negative, except as noted in HPI. ED EXAM, GENERAL - Physical Exam Exam: See Below Exam Limited By: No Limitations General Appearance: Alert, No Apparent Distress Eye Exam: Bilateral Eye: EOMI Ears: Normal External Exam, Hearing Grossly Normal, Normal TMs Nose: Normal Inspection Throat/Mouth: Normal Voice, Inflammation (mild posterior) Head: Atraumatic, Normocephalic Neck: Normal Inspection, Full Range of Motion Respiratory/Chest: No Respiratory Distress, Lungs Clear, Normal Breath Sounds, Other (rare bronchial cough) Cardiovascular: Normal Peripheral Pulses, Regular Rate, Rhythm GI/Abdominal: Normal Bowel Sounds, Soft Extremities: Normal Inspection Neurological: Alert, Oriented, Normal Cognition Psychiatric: Normal Affect, Normal Mood Skin Exam: Warm, Dry, Intact, Normal Color Course - Vital Signs Last Recorded V/S: Last Vital Signs Temp 97.9 F 02/17/21 19:51 Pulse 91 02/17/21 19:51 Resp 18 02/17/21 19:51 BP 130/74 02/17/21 19:51 Pulse Ox 98 02/17/21 19:51 - Orders/Labs/Meds Labs: Laboratory Tests 02/17/21 Range/Units 19:45 SARS-CoV-2 RNA ([facility]) Positive H (NEGATIVE) Meds: Medications Discontinued Medications Generic Name Dose Route Start Last Admin Trade Name Macho PRN Reason Stop Dose Admin Benzonatate Confirm 02/17/21 21:16 02/17/21 21:21 Benzonatate 100 Mg Cap Administered 02/17/21 21:17 Not Given Dose 400 mg .ROUTE .STK-MED ONE Departure - Departure Time of Disposition: 21:10 Disposition: Home, Self-Care 01 Condition: Good Clinical Impression: COVID - Discharge Information *PRESCRIPTION DRUG MONITORING PROGRAM REVIEWED*: No *COPY OF PRESCRIPTION DRUG MONITORING REPORT IN PATIENT SAMUEL: No Instructions: COVID-19: Quarantine vs. Isolation - [facility] (06/12/2020), COVID-19: What to Do if You Are Sick - [facility] (06/26/2020) Forms: ED Department Discharge Additional Instructions: increase fluids diet as tolerated tylenol 500mg every 4 hours as needed for discomfort/ fever quarantine 14 days from onset of symptoms tesselon 200mg every 8 hours as needed for cough muccinex or robitussin to loosen phlegm, use per label instructions urgent follow up if severe difficulty breathing Sepsis Event Note (ED) - Evaluation Sepsis Screening Result: No Definite Risk - Focused Exam Vital Signs: Vital Signs Temp Pulse Resp BP Pulse Ox 02/17/21 19:51 97.9 F 91 18 130/74 98
== END 2021-02-17 21:26 | disposition home or self-care (01) ==
LOC: DL.ED 19:30
DX: U07.1 COVID-19 (principal); Z88.0 Allergy status to penicillin; Z72.0 Tobacco use
CPT/HCPCS: 87635; 99284; A9270; U0002

== ENCOUNTER 2023-04-24 12:53 | Emergency (ER) | payer MEDICAID | END 2023-04-24 15:05 | disposition left against medical advice (07) | LOC: DL.ED 12:53 | DX: Z53.21 Procedure and treatment not carried out due to patient leaving prior to being seen by health care provider (principal) ==